=== PATIENT | female | born 1955 | race Caucasian/White ===

== ENCOUNTER 2016-08-24 10:10 | Observation (INO) ==
[2016-08-24] MEDS ORDERED: Ondansetron 4 MG/2 ML VIAL IVP ONE (10:45)
[2016-08-24] MEDS ORDERED: Clindamycin 900 MG/50 ML 900 MG/50 ML IV.SOLN IVPB ONE (10:45)
[2016-08-24] MEDS ORDERED: Ketorolac 30 MG/ML VIAL IVP ONE (10:45)
--- NOTE | 2016-08-24 10:46 | Emergency Department Note ---
Disposition Clinical Impression: Cellulitis Qualifiers: Site of cellulitis: extremity Site of cellulitis of extremity: axilla Laterality: right Qualified Code(s): L03.111 - Cellulitis of right axilla Disposition: Admitted As Inpatient Condition: Fair Forms: ED Satisfaction Letter Skin/Abscess/FB HPI Chief complaint: ED Skin/Abscess/Foreign Body Stated complaint: Abscess under R arm Time Seen by Provider: 08/24/16 10:20 Source: patient Mode of arrival: private vehicle Limitations: no limitations Nursing Notes Reviewed: Yes Vital Signs Reviewed: Yes Pt Subjective Complaint: abscess/boil Onset (ago): day(s) (4) Tetanus Up to Date: yes Location: RUE Severity: severe Quality: burning, sharp Consistency: constant Improves with: none Worsens with: movement Context: other Associated symptoms: Reports: fever, chills, nausea. Denies: rigors, itching, vomiting, malaise, arthralgias, myalgias, cough, shortness of breath Treatments prior to arrival: none Home Medications Medication Instructions Recorded Confirmed Black Cohosh Root [Black Cohosh] 200 mg PO HS 01/10/16 02/03/16 Budesonide/Formoterol Fumarate 2 puff IH BID PRN 01/10/16 02/03/16 [Symbicort 160-4.5 Mcg Inhaler] Gabapentin [Neurontin] 100 mg PO HS 01/10/16 02/03/16 Glucosamine Sulfate Dipot Chlr 1,000 mg PO DAILY 01/10/16 02/03/16 [Glucosamine] Hydroxychloroquine [Plaquenuil] 200 mg PO DAILY 01/10/16 02/03/16 Lactobacillus Combination No.8 1 cap PO DAILY 01/10/16 02/03/16 [Adult Probiotic] Levothyroxine [Synthroid] 88 mcg PO 0601/10/16 02/03/16 Multivitamin [One Daily Essential] 1 each PO DAILY 01/10/16 02/03/16 Paroxetine HCl [Paroxetine] 40 mg PO DAILY 01/10/16 02/03/16 TraZODone 50 mg PO HS 01/10/16 02/03/16 cloNIDine HCl [CloNIDine HCl] 0.1 mg PO HS 01/10/16 02/03/16 Albuterol Neb [Proventil Neb] 2.5 mg IH TID PRN 02/03/16 02/03/16 Albuterol Sulfate [Ventolin Hfa] 2 puff IH Q4H PRN 02/03/16 02/03/16 Lisinopril [Zestril] 10 mg PO DAILY 02/03/16 02/03/16 Allergies Allergy/AdvReac Type Severity Reaction Status Date / Time Amoxicillin [From Augmentin] AdvReac Gastrointestinal Verified 01/10/16 06:57 Upset clavulanic acid AdvReac Gastrointestinal Verified 01/10/16 06:57 [From Augmentin] Upset Erythromycin Base AdvReac Vomiting Unverified 01/10/16 06:57 sulfamethoxazole AdvReac Diarrhea Verified 01/10/16 06:57 [From Bactrim] trimethoprim [From Bactrim] AdvReac Diarrhea Verified 01/10/16 06:57 All systems ED: reviewed and negative except as stated. Constitutional: Reports: fever, chills. Denies: weakness Cardiovascular: Denies: chest pain, palpitations, syncope Respiratory: Denies: dyspnea Gastrointestinal: Reports: nausea. Denies: abdominal pain, vomiting, diarrhea Musculoskeletal: Denies: back pain, neck pain, joint swelling, arthralgia Neurological: Denies: headache Hematological/Lymphatic: Denies: easy bleeding, easy bruising, lymphadenopathy Past Medical History - Past Medical History Attestation: Yes The following information was validated with the patient. Source: patient Medical history: Reports: asthma, RA, thyroid disease Surgical history: Reports: other Psychiatric history: Reports: anxiety - Social History Smoking Status: Never smoker Smokeless Tobacco Status: No Alcohol use: Reports: none Drug use: Reports: none Physical Exam - General Limitations: no limitations General appearance: alert, in no apparent distress - Head Head exam: atraumatic, normocephalic, normal inspection - Eye Eye exam: Present: normal appearance, PERRL. Absent: scleral icterus, conjunctival injection, periorbital swelling - ENT ENT exam: mucous membranes moist - Neck Neck exam: Present: normal inspection, full ROM, trachea midline. Absent: lymphadenopathy - Respiratory Respiratory exam: Present: normal lung sounds bilaterally. Absent: respiratory distress - Cardiovascular Cardiovascular exam: Present: normal rhythm, tachycardia, normal heart sounds - Extremities Exam Extremities exam: Present: full ROM, normal capillary refill - Back Exam Back exam: Present: normal inspection - Neurological Exam Neurological exam: Present: alert, oriented X3, CN II-XII intact, normal gait - Psychiatric Psychiatric exam: Present: normal affect, normal mood - Skin Skin exam: Present: warm, dry, intact, normal color - Expanded Skin Exam Type of lesion: Present: other (cellulitis) Distribution: RUE (inferior medial aspect of axilla / tail of breast) Description: Present: size (7c m x 5cm oval shaped), tenderness, erythematous, swelling, indurated. Absent: blisters, petechial, purpuric, fluctuant Course Vital Signs Temperature 98.1 F 08/24/16 10:11 Pulse Rate 109 08/24/16 10:11 Respiratory Rate 18 08/24/16 10:11 Blood Pressure 121/72 08/24/16 10:11 O2 Sat by Pulse Oximetry 98 08/24/16 10:11 Temperature 98.1 F 08/24/16 10:11 Pulse Rate 109 08/24/16 10:11 Respiratory Rate 18 08/24/16 10:11 Blood Pressure 121/72 08/24/16 10:11 O2 Sat by Pulse Oximetry 98 08/24/16 10:11 Oxygen Delivery Oxygen Delivery Room Air Skin/Abscess/Foreign Body - Medical Records Medical records reviewed: Yes I reviewed the patient's medical records. - Lab Data Lab results reviewed: Yes I reviewed the patient's lab results. Result diagrams: 08/24/16 10:56 08/24/16 10:56 Lab Results 08/24/16 08/24/16 Range/Units 10:56 10:56 WBC 12.2 H (4.3-11.1) K/mcL RBC 3.26 L (3.82-4.97) M/mcL Hgb 10.5 L (11.5-15.4) g/dL Hct 31.6 L (35.3-44.9) % MCV 96.9 (83.0-100.0) fL MCH 32.2 (28.0-33.3) pg MCHC 33.2 (31.6-35.5) g/dL RDW 12.0 (11.5-14.5) % Plt Count 208 (140-400) K/mcL MPV 9.0 L (9.4-12.4) fL Immature Gran % 1.1 (0-4) % Seg Neutrophils % 81.2 % Lymphocytes % 7.9 % Monocytes % 8.0 % Eosinophils % 1.6 % Basophils % 0.2 % Neutrophils # 9.9 H (1.6-8.9) K/mcL Lymphocytes # 1.0 (0.6-4.6) K/mcL Monocytes # 1.0 (0.0-1.3) K/mcL Eosinophils # 0.2 (0.0-0.6) K/mcL Basophils # 0.0 (0.0-0.2) K/mcL Sodium 138 (136-145) mEq/L Potassium 3.7 (3.5-4.5) mEq/L Chloride 105 (98-109) mEq/L Carbon Dioxide 23 (19-29) mEq/L BUN 17 (7-20) mg/dL Creatinine 1.14 H (0.57-1.11) mg/dL Est GFR ( Amer) 59 L (> 60) Est GFR (Non-Af Amer) 48 L (> 60) BUN/Creatinine Ratio 15 (6-26) Glucose 181 H (70-99) mg/dL Calculated Osmolality 292 (280-300) Calcium 9.3 (8.6-10.8) mg/dL
[2016-08-24 11:02] LABS: Basophils % 0.2 %; Eosinophils # 0.2 K/mcL (0.0-0.6); Eosinophils % 1.6 %; Hematocrit 31.6 % (35.3-44.9); Hemoglobin 10.5 g/dL (11.5-15.4); Immature Granulocytes % 1.1 % (0-4); Lymphocytes % 7.9 %; Mean Corpuscular HGB Conc 33.2 g/dL (31.6-35.5); Mean Corpuscular Hemoglobin 32.2 pg (28.0-33.3); Mean Corpuscular Volume 96.9 fL (83.0-100.0); Neutrophils # 9.9 K/mcL (1.6-8.9); Platelet Count 208 K/mcL (140-400); Red Blood Count 3.26 M/mcL (3.82-4.97); Segmented Neutrophils % 81.2 %
[2016-08-24 11:13] LABS: Calcium 9.3 mg/dL (8.6-10.8); Potassium 3.7 mEq/L (3.5-4.5)
--- NOTE | 2016-08-24 11:49 | Emergency Department Note ---
START Narrative - START START: I examined this patient and my medical decision-making was reviewed with the WORKERS COMPENSATION SPECIALIST/PA/Advanced Practice Nurse/Resident Physician. I agree with the documented findings, disposition and treatment plan as described except to the extent set forth below. ED attending note: Patient seen with physician assistant unit forester Greer Mccollum We independently evaluated the patient. We independently had [id number] contact with the patient. Please see a copy of his note for details of the history and physical, evaluation, management and disposition of this emergency Department patient. Briefly: 61-year-old female presents with erythematous painful and indurated area on the anterior right axillary fold that is been growing and spreading with increasing pain and low-grade fever since . There has been no recent trauma to the area or shaving. She said she has had occasional "pimples " but nothing like this. Her tetanus is up-to-date. She is on week for methotrexate to treat rheumatoid arthritis. She has elevated white count and glucose is elevated at 181. Considering the spread of the induration and erythema consistent with a cellulitis involving the truncal area of the anterior axillary fold on the right going on to the pectoral area of admission is warranted. IV antibiotics are being started. Orders placed for admission and hospitalist his page.
[2016-08-24] MEDS ORDERED: Naloxone 0.4 MG/ML INJ IVP PRN (13:41)
[2016-08-24] MEDS ORDERED: *HR* OxyCODONE/APAP 5/325 TABLET PO PRN (13:42)
--- NOTE | 2016-08-24 13:47 | Internal Med History&Physical ---
Date of Encounter: 08/24/16 Time of Encounter: 13:00 Assessment and Plan (1) Cellulitis Current visit: Yes Status: Acute Acute cellulitis involving the right anterior chest wall and axilla. We will treat with IV antibiotics. Pain control. Moderate risk for complications Qualifiers: Site of cellulitis: extremity Site of cellulitis of extremity: axilla Laterality: right Qualified Code(s): L03.111 - Cellulitis of right axilla (2) Essential hypertension Current visit: Yes Status: Chronic Monitor blood pressure. Continue home medications. (3) Elevated blood sugar level Current visit: Yes Status: Acute Patient has elevated blood sugar at 180 on arrival here. Will check A1c level. Internal Medicine - H&P: HPI Chief complaint: Right-sided chest wall /axillary redness and swelling Admitted From: Emergency Dept Plans for Post Hospital Care: Home History of present illness: Ms. Samuel is a 61 year old female patient with history of essential hypertension who presented to the ER with complaints of right chest wall and axillary region redness and swelling. This began 4 days back as a single pimple and began to rapidly spread with increased pain and tenderness along with swelling in this region. She began to have fevers and chills at home. Pain has been 7 out of 10 in severity. She had a similar pimple/ boil about 2 years back that spontaneously resolved without any increase in size. She has recently started taking methotrexate for rheumatoid arthritis. No nausea or vomiting. No recent antibiotic use. Past Med Surg Social Fam HX - Past Medical History Attestation: Yes The following information was validated with the patient. Source: patient Medical history: asthma, RA, thyroid disease Psychiatric history: anxiety - Past Surgical History Surgical History: other - Social History Smoking Status: Never smoker Smokeless Tobacco Status: No Alcohol use: none Drug use: none - Additional Family History Additional family history: Reviewed and found to be contributing at this time Internal Medicine - H&P: Meds Glucosamine Sulfate Dipot Chlr [Glucosamine] 1,000 mg PO DAILY 01/10/16 [History ] Hydroxychloroquine [Plaquenuil] 200 mg PO BID 01/10/16 [History] Multivitamin [One Daily Essential] 1 each PO DAILY 01/10/16 [History] Paroxetine HCl [Paroxetine] 40 mg PO DAILY 01/10/16 [History] TraZODone 50 mg PO HS 01/10/16 [History] cloNIDine HCl [CloNIDine HCl] 0.1 mg PO HS 01/10/16 [History] Acetaminophen [Tylenol] 1,500 mg PO ONCE 08/24/16 [History] Folic Acid [Folic Acid] 1 mg PO DAILY 08/24/16 [History] Levothyroxine [Synthroid] 112 mcg PO 0630 08/24/16 [History] Methotrexate [Otrexup] 7.5 mg PO FR 08/24/16 [History] Allergies Amoxicillin [From Augmentin] Adverse Reaction (Verified 08/24/16 12:19) Gastrointestinal Upset clavulanic acid [From Augmentin] Adverse Reaction (Verified 08/24/16 12:19) Gastrointestinal Upset Erythromycin Base Adverse Reaction (Unverified 08/24/16 12:19) Vomiting sulfamethoxazole [From Bactrim] Adverse Reaction (Verified 08/24/16 12:19) Diarrhea trimethoprim [From Bactrim] Adverse Reaction (Verified 08/24/16 12:19) Diarrhea All Systems PM: A 10-system review of systems was performed and is negative for pertinent findings except as documented above in the HPI. - Constitutional Constitutional: chills, fever(s), no night sweats - EENT Eyes: no change in vision, no discharge, no pain, no photophobia Ears: no ear discharge, no ear pain, no tinnitus Nose, mouth and throat: no dysphagia, no nasal discharge, no neck pain, no sore throat - Cardiovascular Cardiovascular ROS IM: no chest pain, no diaphoresis, no dyspnea, no lightheadedness, no palpitations, no syncope - Respiratory Respiratory: no cough, no dyspnea, no wheezing, no excessive phlegm production - Gastrointestinal Gastrointestinal: no abdominal pain, no diarrhea, no hematemesis, no hematochezia, no melena, no nausea, no vomiting - Genitourinary Genitourinary: no change in urinary stream, no dysuria, no flank pain, no hematuria - Musculoskeletal Musculoskeletal ROS IM: no numbness, no tingling - Integumentary Integumentary IM: erythema, rash, no unusual bruising - Neurological Neurological ROS: no confusion, no convulsions, no focal weakness, no numbness, no tingling, no tremor(s) - Constitutional Vitals: Temp Pulse Resp BP Pulse Ox 98.1 F 103 14 142/75 95 05/15/17 10:11 08/24/16 11:46 08/24/16 13:13 08/24/16 13:13 08/24/16 11:46 General appearance: Present: cooperative, mild distress, A&O X 3, answers questions appropriately - Respiratory Respiratory exam: Present: CTAB. Absent: accessory muscle use, rales, rhonchi, wheezes - Cardiovascular Cardiovascular exam: Present: RRR, +S1, +S2. Absent: diastolic murmur, gallop, rubs, systolic murmur - GI/Abdominal GI/Abdominal exam: Present: normal bowel sounds, soft, no peritoneal signs. Absent: distended, tenderness - Extremities Exam Extremities exam: Present: warm, radial pulses palpable and symetrical. Absent : calf tenderness, cyanotic, pedal edema - Skin Skin exam: Present: dry, erythema (Cellulitis with induration involving the right chest wall and anterior axillary region measuring about 15x 20 cm in size with tenderness and warmth to palpation. No tender lymph nodes palpated. No fluctuance), intact Internal Med - H&P Results - Labs CBC & Chem 7: 08/24/16 10:56 08/24/16 10:56 - Attending Attestation This document has been at least partially created by [email or web address] recognition technology by Dr. Gan. Errors in grammar, wording or other phrases may exist. If errors are found after the documentation is signed, they will be addressed individually in the addendum section of this document when appropriate.
[2016-08-24] MEDS ORDERED: Ondansetron 4 MG/2 ML VIAL IVP PRN (16:18)
[2016-08-24] MEDS: Clindamycin 600 MG/50 ML 600 MG/50 ML IV.SOLN IVPB SCH ×2 (17:12→23:59)
[2016-08-24] MEDS: *HR* Heparin 5,000 UNIT/ML VIAL SQ SCH (17:13)
[2016-08-24] MEDS: cloNIDine HCl 0.1 MG TABLET PO SCH (21:07)
[2016-08-24] MEDS: Lactobacillus 1 EACH CAP.SPRINK PO SCH (21:07)
[2016-08-24] MEDS: traZODone 50 MG TABLET PO SCH (21:07)
[2016-08-25 05:40] LABS: Basophils % 0.2 %; Eosinophils # 0.1 K/mcL (0.0-0.6); Eosinophils % 0.6 %; Hematocrit 30.3 % (35.3-44.9); Immature Granulocytes % 2.1 % (0-4); Lymphocytes # 1.3 K/mcL (0.6-4.6); Lymphocytes % 10.6 %; Mean Corpuscular Hemoglobin 31.9 pg (28.0-33.3); Mean Corpuscular Volume 96.8 fL (83.0-100.0); Mean Platelet Volume 9.4 fL (9.4-12.4); Monocytes % 8.3 %; Neutrophils # 9.5 K/mcL (1.6-8.9); Platelet Count 218 K/mcL (140-400); Red Blood Count 3.13 M/mcL (3.82-4.97); Red Cell Distribution Width 12.1 % (11.5-14.5); Segmented Neutrophils % 78.2 %
[2016-08-25 06:00] LABS: Hemoglobin A1C 6.2 %
[2016-08-25] MEDS: *HR* Heparin 5,000 UNIT/ML VIAL SQ SCH ×2 (06:05→16:57)
[2016-08-25] MEDS: (Glucosamine Sulfate Dipot Chlr [Glucosamine] 1,000 M) PO SCH (08:59)
[2016-08-25] MEDS: Clindamycin 600 MG/50 ML 600 MG/50 ML IV.SOLN IVPB SCH ×3 (08:59→23:53)
[2016-08-25] MEDS: Lactobacillus 1 EACH CAP.SPRINK PO SCH ×2 (08:59→20:07)
[2016-08-25] MEDS: Folic Acid 1 MG TABLET PO SCH (08:59)
[2016-08-25] MEDS ORDERED: *HR* Morphine 2 MG/ML SYRINGE IVP PRN (09:29)
--- NOTE | 2016-08-25 09:38 | Internal Med Progress Note ---
Date of Encounter: 08/25/16 Time of Encounter: 08:45 - Assessment and plan (1) Cellulitis Current Visit: Yes Status: Acute Assessment and plan: Cellulitis/abscess noted to right axillary area. Erythema has regressed and improved when compared to pen markings from yesterday. Induration without fluctuance. No indication for I&D at this time. Afebrile. Mild leukocytosis. Mild tachycardia. Will initiate IV fluids. Mild anemia, will trend. Patient requesting an increase in pain medication, morphine added for severe pain. Continue clindamycin. Overall, she is improving, will trend. Hyperglycemia noted, will initiate insulin if indicated. Qualifiers: Site of cellulitis: extremity Site of cellulitis of extremity: axilla Laterality: right Qualified Code(s): L03.111 - Cellulitis of right axilla (2) SIRS (systemic inflammatory response syndrome) Current Visit: Yes Status: Acute Assessment and plan: Tachycardia noted with very mild leukocytosis of 12.1. Blood pressure stable. Patient alert and oriented 3 and perfusing well. Capillary refill brisk to all extremities. No fevers. We will initiate IV fluids. We will monitor. We will check a lactic acid levels. (3) CKD (chronic kidney disease) stage 3, GFR 30-59 ml/min Current Visit: Yes Status: Chronic Assessment and plan: Stable and consistent with her baseline, will trend. (4) Essential hypertension Current Visit: Yes Status: Chronic Assessment and plan: Controlled. At home, patient is only on clonidine 0.1 mg at bedtime for her blood pressure. This has been continued, will trend. (5) Elevated blood sugar level Current Visit: Yes Status: Acute Assessment and plan: Likely stress/infection related. A1c 6.2%, will trend while admitted. No diagnosis of diabetes at this time. ACHS checks- will add insulin if indicated - Subjective Interval history: Patient seen and examined. On examination, patient sitting upright in bed watching television. She states that her pain is better controlled, but is requesting an increase in her pain medication. She states that she is eating well. - Constitutional Vitals: Temp Pulse Resp BP Pulse Ox 98.7 F 107 17 115/63 95 08/25/16 08:54 08/25/16 08:54 08/25/16 08:54 08/25/16 08:54 08/25/16 08:54 General appearance: Present: cooperative, A&O X 3, pleasant, no acute distress, answers questions appropriately - Head Head exam: Present: atraumatic, normocephalic - Eye Eye exam: Present: PERRL, conjuntiva pink, sclera anicteric Pupils: Present: PERRL - Neck Neck exam general surgery: Present: supple, trachea midline. Absent: lymphadenopathy - Respiratory Respiratory exam: Present: CTAB. Absent: accessory muscle use, rales, respiratory distress, rhonchi, wheezes - Cardiovascular Cardiovascular exam: Present: RRR, +S1, +S2. Absent: diastolic murmur, gallop, rubs, systolic murmur - GI/Abdominal GI/Abdominal exam: Present: normal bowel sounds, soft, no peritoneal signs. Absent: distended, tenderness - Extremities Exam Extremities exam: Present: warm, radial pulses palpable and symetrical. Absent : calf tenderness, cyanotic, pedal edema - Neurological Exam Neurological exam: Present: alert, CN II-XII intact, oriented X3, no focal deficits, strengths equal and symetr throughout. Absent: pronater drift, facial droop, speech deficit - Skin Skin exam: Present: dry, intact, normal color, warm - Expanded Skin Exam Type of lesion: Present: abscess Distribution of rash: Present: chest Description of rash: Present: erythematous, indurated, swelling, tenderness. Absent: fluctuant Internal Medicine: Result - Labs CBC & Chem 7: 08/25/16 05:16 17 10:56 Labs: Short CBC 08/25/16 Range/Units 05:16 WBC 12.1 H (4.3-11.1) K/mcL Hgb 10.0 L (11.5-15.4) g/dL Hct 30.3 L (35.3-44.9) % Plt Count 218 (140-400) K/mcL Neutrophils # 9.5 H (1.6-8.9) K/mcL Consult Discharge Plan - Plan Referrals: Aviva Tracy DO [Primary Care Provider] -
[2016-08-25] MEDS: 0.9 % Sodium Chloride 1,000 ML IVC SCH ×2 (10:59→21:15)
[2016-08-25] MEDS: traZODone 50 MG TABLET PO SCH (20:07)
[2016-08-25] MEDS: cloNIDine HCl 0.1 MG TABLET PO SCH (20:07)
[2016-08-26 03:59] LABS: Basophils % 0.2 %; Eosinophils # 0.2 K/mcL (0.0-0.6); Eosinophils % 1.8 %; Hematocrit 25.8 % (35.3-44.9); Hemoglobin 8.5 g/dL (11.5-15.4); Immature Granulocytes % 1.2 % (0-4); Lymphocytes # 2.6 K/mcL (0.6-4.6); Lymphocytes % 21.2 %; Mean Corpuscular HGB Conc 32.9 g/dL (31.6-35.5); Mean Corpuscular Hemoglobin 32.4 pg (28.0-33.3); Mean Corpuscular Volume 98.5 fL (83.0-100.0); Mean Platelet Volume 9.8 fL (9.4-12.4); Monocytes # 1.1 K/mcL (0.0-1.3); Neutrophils # 8.2 K/mcL (1.6-8.9); Platelet Count 200 K/mcL (140-400); Red Blood Count 2.62 M/mcL (3.82-4.97); Red Cell Distribution Width 12.3 % (11.5-14.5); Segmented Neutrophils % 66.6 %
[2016-08-26 04:18] LABS: BUN/Creatinine Ratio 17 (6-26); Blood Urea Nitrogen 18 mg/dL (7-20); Calcium 8.1 mg/dL (8.6-10.8); Carbon Dioxide 25 mEq/L (19-29); Chloride 106 mEq/L (98-109); Glucose 163 mg/dL (70-99); Osmolality,Calculated 291 (280-300); Potassium 3.7 mEq/L (3.5-4.5); Sodium 138 mEq/L (136-145); eGFR For African Americans > 60 (> 60); eGFR For Non-African Americans 54 (> 60)
[2016-08-26] MEDS: *HR* Heparin 5,000 UNIT/ML VIAL SQ SCH (06:14)
[2016-08-26 06:28] VITALS: BP 105/68
[2016-08-26] MEDS: Lactobacillus 1 EACH CAP.SPRINK PO SCH (09:31)
[2016-08-26] MEDS: Clindamycin 600 MG/50 ML 600 MG/50 ML IV.SOLN IVPB SCH (09:32)
[2016-08-26] MEDS: Folic Acid 1 MG TABLET PO SCH (09:32)
[2016-08-26] MEDS: (Glucosamine Sulfate Dipot Chlr [Glucosamine] 1,000 M) PO SCH (09:32)
--- NOTE | 2016-08-26 10:40 | Discharge Summary ---
Date of Encounter: 08/26/16 Time of Encounter: 09:30 - Discharge Diagnosis (1) Cellulitis Priority: Primary Status: Acute Comments: Much improved on day of discharge. We will continue clindamycin upon disposition. (2) SIRS (systemic inflammatory response syndrome) Priority: Primary Status: Resolved (3) CKD (chronic kidney disease) stage 3, GFR 30-59 ml/min Priority: Secondary Status: Chronic Comments: Remained stable and slightly improved from her baseline throughout this admission. Creatinine normal on day of discharge. Follow up outpatient (4) Essential hypertension Priority: Secondary Status: Chronic Comments: Controlled. At home, patient is only on clonidine 0.1 mg at bedtime for her blood pressure. This has been continued, follow-up outpatient. (5) Elevated blood sugar level Priority: Primary Status: Acute Comments: Likely secondary to infection. A1c 6.2%, prediabetes diagnosed, follow-up outpatient - Discharge Medications Prescriptions: Clindamycin HCl 300 mg PO QID #44 capsule Home Medications: Glucosamine Sulfate Dipot Chlr [Glucosamine] 1,000 mg PO DAILY 01/10/16 [History ] Hydroxychloroquine [Plaquenuil] 200 mg PO BID 01/10/16 [History] Multivitamin [One Daily Essential] 1 each PO DAILY 01/10/16 [History] Paroxetine HCl [Paroxetine] 40 mg PO DAILY 01/10/16 [History] TraZODone 50 mg PO HS 01/10/16 [History] cloNIDine HCl [CloNIDine HCl] 0.1 mg PO HS 01/10/16 [History] Acetaminophen [Tylenol] 1,500 mg PO ONCE 08/24/16 [History] Folic Acid 1 mg PO DAILY 08/24/16 [History] Levothyroxine [Synthroid] 112 mcg PO 0630 08/24/16 [History] Methotrexate [Otrexup] 7.5 mg PO FR 08/24/16 [History] Clindamycin HCl 300 mg PO QID #44 capsule 08/26/16 [Rx] Allergies/Adverse Reactions: Allergies Amoxicillin [From Augmentin] Adverse Reaction (Verified 08/24/16 12:19) Gastrointestinal Upset clavulanic acid [From Augmentin] Adverse Reaction (Verified 08/24/16 12:19) Gastrointestinal Upset Erythromycin Base Adverse Reaction (Verified 08/25/16 08:58) Vomiting sulfamethoxazole [From Bactrim] Adverse Reaction (Verified 08/24/16 12:19) Diarrhea trimethoprim [From Bactrim] Adverse Reaction (Verified 08/24/16 12:19) Diarrhea Date of admission: 08/24/16 12:16 Primary care physician: Irvin Curry Discharging clinician: Koki Marks Anticipated date of discharge: 08/26/16 - Patient Status Disposition: Home, Self-Care Condition: Good Functional capacity at discharge: independent ambulation Overall status at discharge: patient is back to baseline - Discharge Instructions Follow Up With: Aviva Tracy DO [Primary Care Provider] - 09/01/16 1:30 pm Additional Instructions: Follow-up with primary care provider as scheduled - Diet and Activity Activity: increase activity as tolerated Diet: diabetic diet, low salt diet Hospital course: Ms. Samuel is a 61 year old female with past medical history of hypertension and rheumatoid arthritis. Patient presented to the emergency department chief complaint right-sided chest wall/right axillary region redness and swelling. Symptoms started 4 days prior to presentation and started out as a single pimple but then rapidly increased pain and tenderness in size. Patient also endorsed fevers and chills at home. Patient stating she had a similar presentation 2 years prior to presentation that spontaneously resolved without any intervention. She recently started taking methotrexate for her RA. Workup in the emergency department unremarkable. Patient was admitted to the hospitalist service for further evaluation and management. Patient was treated with clindamycin while admitted. She was admitted and observed over the course of 2 nights and her wound improved greatly over those 3 days. She initially met SIRS criteria but resolved with IV fluids. No lactic acidosis. She remained hemodynamically stable. She did have mild anemia is likely hemodilution nor has she had no signs of active bleeding. Recommend follow-up outpatient for recheck of her CBC. Her glucose levels were also noted to be elevated however A1c 6.2%, diagnosed with prediabetes at this time. Recommended lifestyle changes and follow-up outpatient-no diabetes medications initiated at this time. Throughout this admission, her wound was not amenable to an I&D and an I&D was not indicated clinically. She was discharged home in stable condition with close outpatient follow-up recommended. - Time Spent with Patient Total time spent providing and/or coordinating discharge services: - Constitutional Vitals: Temp Pulse Resp BP Pulse Ox 98.1 F 97 18 105/68 97 05/17/17 06:27 08/26/16 06:27 08/26/16 06:27 08/26/16 06:27 08/26/16 06:27 General appearance: Present: cooperative, A&O X 3, pleasant, no acute distress, answers questions appropriately - Head Head exam: Present: atraumatic, normocephalic - Eye Eye exam: Present: PERRL, conjuntiva pink, sclera anicteric Pupils: Present: PERRL - Neck Neck exam general surgery: Present: supple, trachea midline. Absent: lymphadenopathy - Respiratory Respiratory exam: Present: CTAB. Absent: accessory muscle use, rales, respiratory distress, rhonchi, wheezes - Cardiovascular Cardiovascular exam: Present: RRR, +S1, +S2. Absent: diastolic murmur, gallop, rubs, systolic murmur - GI/Abdominal GI/Abdominal exam: Present: normal bowel sounds, soft, no peritoneal signs. Absent: distended, tenderness - Extremities Exam Extremities exam: Present: warm, radial pulses palpable and symetrical. Absent : calf tenderness, cyanotic, pedal edema - Neurological Exam Neurological exam: Present: alert, CN II-XII intact, normal gait, oriented X3, no focal deficits, strengths equal and symetr throughout. Absent: pronater drift, facial droop, speech deficit - Skin Skin exam: Present: dry, intact, normal color, warm - Expanded Skin Exam Type of lesion: Present: abscess Distribution of rash: Present: chest (Right axillary) Description of rash: Present: erythematous, indurated, swelling (Improved), tenderness. Absent: discharge, fluctuant
== END 2016-08-26 12:15 | disposition home or self-care (01) ==
LOC: 3BNU 10:10 → EMEROO 10:10 → SUATTDRO 12:16 → 3BNU 13:13
PROVIDERS: ADMIT Internal Medicine; ATTEND Nurse Practitioner Family

== ENCOUNTER 2019-05-17 19:15 | Inpatient (IN) ==
[2019-05-17] MEDS ORDERED: Ondansetron 4 MG/2 ML VIAL IVP STA (19:40)
[2019-05-17] MEDS ORDERED: 0.9 % Sodium Chloride 1,000 ML IVC ONE (19:40)
[2019-05-17] MEDS ORDERED: *HR* HYDROmorphone (PF) 1 MG/ML SYRINGE IVP ONE ×2 (19:40→23:13)
[2019-05-17] MEDS ORDERED: Ketamine *HR* 15 MG in 0.9 % Sodium Chloride 100 ML IVPB ONE (20:46)
[2019-05-17] MEDS ORDERED: *HR* HYDROmorphone (PF) 1 MG/ML SYRINGE IVP STA (21:53)
[2019-05-17 23:27] LABS: Basophils % 0.3 %; Eosinophils # 0.1 K/mcL (0.0-0.6); Eosinophils % 0.6 %; Hemoglobin 11.9 g/dL (11.5-15.4); Immature Granulocytes % 0.8 % (0-4); Lymphocytes # 1.9 K/mcL (0.6-4.6); Lymphocytes % 16.3 %; Mean Corpuscular Hemoglobin 33.9 pg (28.0-33.3); Mean Corpuscular Volume 99.7 fL (83.0-100.0); Mean Platelet Volume 9.7 fL (9.4-12.4); Monocytes # 0.8 K/mcL (0.0-1.3); Monocytes % 6.6 %; Neutrophils # 8.8 K/mcL (1.6-8.9); Platelet Count 242 K/mcL (140-400); Red Blood Count 3.51 M/mcL (3.82-4.97); Red Cell Distribution Width 12.8 % (11.5-14.5); Segmented Neutrophils % 75.4 %; White Blood Count 11.7 K/mcL (4.3-11.1)
[2019-05-17 23:45] LABS: BUN/Creatinine Ratio 14 (6-26); Blood Urea Nitrogen 14 mg/dL (8-23); Calcium 8.9 mg/dL (8.6-10.3); Carbon Dioxide 25 mEq/L (23-29); Chloride 106 mEq/L (98-107); Glucose 131 mg/dL (70-105); Osmolality,Calculated 288 (280-300); Potassium 3.6 mEq/L (3.5-5.1); Sodium 138 mEq/L (136-145); eGFR For African Americans > 60 (> 60); eGFR For Non-African Americans 57 (> 60)
[2019-05-17] MEDS: 0.9 % Sodium Chloride 1,000 ML IVC SCH (23:46)
[2019-05-18] MEDS ORDERED: Naloxone 0.4 MG/ML INJ IVP PRN (00:13)
[2019-05-18] MEDS ORDERED: D5% in Water 1,000 ML IVC PRN (00:13)
[2019-05-18] MEDS ORDERED: Dextrose Gel 15 GM/37.5 ML TUBE PO PRN ×2 (00:13)
[2019-05-18] MEDS ORDERED: *HR* Dextrose 50 % in Water (Syg) 50 ML SYRINGE IVP PRN (00:13)
[2019-05-18] MEDS ORDERED: traZODone 50 MG TABLET PO SCH ×3 (00:30→21:00)
[2019-05-18 01:05] LABS: Basophils % 0.2 %; Eosinophils % 0.2 %; Hematocrit 33.1 % (35.3-44.9); Hemoglobin 10.9 g/dL (11.5-15.4); Immature Granulocytes % 0.3 % (0-4); Lymphocytes # 1.7 K/mcL (0.6-4.6); Lymphocytes % 15.7 %; Mean Corpuscular HGB Conc 32.9 g/dL (31.6-35.5); Mean Corpuscular Hemoglobin 33.7 pg (28.0-33.3); Mean Corpuscular Volume 102.5 fL (83.0-100.0); Mean Platelet Volume 9.1 fL (9.4-12.4); Monocytes % 9.5 %; Neutrophils # 7.9 K/mcL (1.6-8.9); Platelet Count 204 K/mcL (140-400); Red Blood Count 3.23 M/mcL (3.82-4.97); Red Cell Distribution Width 12.6 % (11.5-14.5); Segmented Neutrophils % 74.1 %; White Blood Count 10.6 K/mcL (4.3-11.1)
[2019-05-18 01:17] LABS: Prothrombin Time 11.3 Seconds (9.4-12.1)
[2019-05-18 01:25] LABS: Alanine Aminotransferase 17 Units/L (7-52); Albumin 3.4 g/dL (3.5-5.7); Albumin/Globulin Ratio 1.4 (1.1-2.2); Alkaline Phosphatase 63 Units/L (34-104); Aspartate Amino Transferase 20 Units/L (13-39); BUN/Creatinine Ratio 13 (6-26); Bilirubin,Total 0.4 mg/dL (0.3-1.0); Blood Urea Nitrogen 12 mg/dL (8-23); Calcium 8.5 mg/dL (8.6-10.3); Carbon Dioxide 25 mEq/L (23-29); Chloride 108 mEq/L (98-107); Cholesterol 252 mg/dL (< 200); Globulin 2.5 g/dL (2.4-3.5); Glucose 156 mg/dL (70-105); HDL Cholesterol 50 mg/dL (40-59); LDL Cholesterol,Calculated 174 mg/dL (0-99); Magnesium 1.4 mg/dL (1.6-2.6); Osmolality,Calculated 291 (280-300); Phosphorous 2.9 mg/dL (2.7-4.5); Sodium 139 mEq/L (136-145); Total Protein 5.9 g/dL (6.4-8.9); Triglycerides 139 mg/dL (< 150); eGFR For African Americans > 60 (> 60); eGFR For Non-African Americans > 60 (> 60)
[2019-05-18 01:37] LABS: Thyroid Stimulating Hormone 0.184 mcIU/mL (0.340-5.600)
[2019-05-18 01:44] LABS: Estimated Average Glucose 163 mg/dl
[2019-05-18 03:50] LABS: Bilirubin,Urine Negative (Negative); Blood,Urine Negative (Negative); Clarity,Urine Clear (Clear); Color,Urine Yellow (Yellow); Glucose,Urine (UA) Normal (Normal); Ketones,Urine Negative (Negative); Leukocyte Esterase,Urine Negative (Negative); Nitrite,Urine Negative (Negative); Protein,Urine Negative (Neg-Trace); Specific Gravity,Urine 1.017 (1.010-1.025); Urobilinogen,Urine Normal (Normal)
[2019-05-18] MEDS: Insulin LISPRO 300 UNITS/3 ML VIAL SQ SCH ×3 (06:07→17:31)
[2019-05-18] MEDS ORDERED: PARoxetine 20 MG TABLET PO SCH (09:00)
[2019-05-18] MEDS: 0.9 % Sodium Chloride 1,000 ML IVC SCH ×2 (10:38→18:40)
[2019-05-18] MEDS ORDERED: *HR* Heparin 5,000 UNIT/ML VIAL SQ SCH (19:00)
[2019-05-18] MEDS ORDERED: *HR* Metoprolol 5 MG/5 ML VIAL IVP ONE (23:30)
[2019-05-19] MEDS: Insulin LISPRO 300 UNITS/3 ML VIAL SQ SCH ×5 (00:28→23:12)
[2019-05-19 06:45] LABS: Folate 20.4 ng/mL (3.0-16.0)
[2019-05-19 06:49] LABS: Vitamin B12 > 1500 pg/mL (250-1100)
[2019-05-19] MEDS ORDERED: Cholecalciferol (D-3) 1,000 UNIT (25MCG) TABLET PO SCH (09:00)
[2019-05-19] MEDS ORDERED: PARoxetine 20 MG TABLET PO SCH (09:00)
[2019-05-19] MEDS ORDERED: Cyanocobalamin (B-12) 1,000 MCG TABLET PO SCH (09:00)
[2019-05-19] MEDS ORDERED: Folic Acid 1 MG TABLET PO SCH (09:00)
[2019-05-19] MEDS ORDERED: Multivit/Ca/Min/Fe/FA 1 TAB TABLET PO SCH (09:00)
[2019-05-19] MEDS ORDERED: *HR* Metoprolol 5 MG/5 ML VIAL IVP ONE (10:16)
[2019-05-19] MEDS: 0.9 % Sodium Chloride 1,000 ML IVC SCH (10:50)
[2019-05-19] MEDS ORDERED: Isovue-370 500 ML BOTTLE IVP ONE (10:57)
[2019-05-19] MEDS ORDERED: *HR* Methotrexate 2.5 MG TABLET PO SCH (13:24)
[2019-05-19] MEDS ORDERED: Furosemide 20 MG/2 ML VIAL IVP ONE (13:33)
[2019-05-19] MEDS ORDERED: Ethanol\\Acetic Acid\\Na Ace\\Ben 1,000 ML IRRIG.SOLN IR ONE (14:54)
[2019-05-19] MEDS ORDERED: levoFLOXacin 750 MG/150 ML 750 MG/150 ML BAG IVPB SCH (15:15)
[2019-05-19] MEDS ORDERED: *HR* FentaNYL (PF) 100 MCG/2 ML VIAL ONE (15:25)
[2019-05-19] MEDS ORDERED: Lidocaine -MPF 2% 2 ML VIAL ONE (15:25)
[2019-05-19] MEDS ORDERED: *HR* Succinylcholine 200 MG/10 ML VIAL IVP ONE (15:25)
[2019-05-19] MEDS ORDERED: *HR* Propofol 200 MG/20 ML VIAL IVP ONE (15:25)
[2019-05-19] MEDS ORDERED: Clindamycin 900 MG/50 ML 900 MG/50 ML IV.SOLN IVPB ONE (15:38)
[2019-05-19] MEDS ORDERED: Acetaminophen IV 1,000 MG/100 ML INFUS..BTL ONE (15:39)
[2019-05-19] MEDS ORDERED: Lidocaine HCL 4 ML Topical Solution (Laryng-O-Jet Kit Sterile Pak) TP ONE (15:47)
[2019-05-19] MEDS ORDERED: *HR* PHENYLEPHRINE 1,000 MCG/10 ML SYRINGE IVP ONE (15:53)
[2019-05-19] MEDS ORDERED: Dexamethasone 4 MG/ML VIAL ONE (16:08)
[2019-05-19] MEDS ORDERED: Ondansetron 4 MG/2 ML VIAL ONE (16:08)
[2019-05-19] MEDS ORDERED: Ketorolac 30 MG/ML VIAL ONE (16:36)
[2019-05-19] MEDS ORDERED: Albuterol 2.5 MG/3 ML NEBULIZER ONE (17:25)
[2019-05-19] MEDS ORDERED: Ringers Solution, Lactated 1,000 ML IVC SCH (17:49)
[2019-05-19] MEDS ORDERED: *HR* Promethazine 25 MG/ML VIAL IVP PRN (17:49)
[2019-05-19] MEDS ORDERED: Naloxone 0.4 MG/ML INJ IVP PRN ×2 (17:49)
[2019-05-19] MEDS ORDERED: Dextrose Gel 15 GM/37.5 ML TUBE PO PRN ×2 (17:49)
[2019-05-19] MEDS ORDERED: D5% in Water 1,000 ML IVC PRN (17:49)
[2019-05-19] MEDS ORDERED: Ondansetron 4 MG/2 ML VIAL IVP PRN (17:49)
[2019-05-19] MEDS ORDERED: MOM Conc 10 ML UD.LIQ PO PRN (17:49)
[2019-05-19] MEDS ORDERED: Sennosides 8.6 MG TABLET PO PRN (17:49)
[2019-05-19] MEDS ORDERED: *HR* Dextrose 50 % in Water (Syg) 50 ML SYRINGE IVP PRN (17:49)
[2019-05-19] MEDS: Ascorbic Acid 500 MG TABLET PO SCH (18:24)
[2019-05-19] MEDS: traZODone 50 MG TABLET PO SCH (21:23)
[2019-05-19] MEDS: Clindamycin 900 MG/50 ML 900 MG/50 ML IV.SOLN IVPB SCH (23:05)
[2019-05-20] MEDS: Clindamycin 900 MG/50 ML 900 MG/50 ML IV.SOLN IVPB SCH (06:34)
[2019-05-20 07:18] LABS: Basophils % 0.1 %; Hematocrit 27.9 % (35.3-44.9); Hemoglobin 9.3 g/dL (11.5-15.4); Immature Granulocytes % 0.6 % (0-4); Lymphocytes # 0.4 K/mcL (0.6-4.6); Lymphocytes % 5.5 %; Mean Corpuscular HGB Conc 33.3 g/dL (31.6-35.5); Mean Corpuscular Volume 98.9 fL (83.0-100.0); Mean Platelet Volume 9.9 fL (9.4-12.4); Monocytes # 0.6 K/mcL (0.0-1.3); Monocytes % 7.8 %; Neutrophils # 6.9 K/mcL (1.6-8.9); Platelet Count 183 K/mcL (140-400); Red Blood Count 2.82 M/mcL (3.82-4.97); Red Cell Distribution Width 12.3 % (11.5-14.5)
[2019-05-20 07:38] LABS: BUN/Creatinine Ratio 14 (6-26); Blood Urea Nitrogen 13 mg/dL (8-23); Calcium 8.6 mg/dL (8.6-10.3); Carbon Dioxide 28 mEq/L (23-29); Chloride 103 mEq/L (98-107); Glucose 228 mg/dL (70-105); Osmolality,Calculated 293 (280-300); Potassium 4.4 mEq/L (3.5-5.1); Sodium 138 mEq/L (136-145); eGFR For African Americans > 60 (> 60); eGFR For Non-African Americans 59 (> 60)
[2019-05-20] MEDS: levoFLOXacin 750 MG/150 ML 750 MG/150 ML BAG IVPB SCH (08:27)
[2019-05-20] MEDS: Multivit/Ca/Min/Fe/FA 1 TAB TABLET PO SCH (08:28)
[2019-05-20] MEDS: Aspirin Enteric Coated 81 MG Tablet PO SCH (08:28)
[2019-05-20] MEDS: Cyanocobalamin (B-12) 1,000 MCG TABLET PO SCH (08:28)
[2019-05-20] MEDS: Folic Acid 1 MG TABLET PO SCH (08:28)
[2019-05-20] MEDS: Ascorbic Acid 500 MG TABLET PO SCH ×2 (08:28→17:34)
[2019-05-20] MEDS: PARoxetine 20 MG TABLET PO SCH (08:28)
[2019-05-20] MEDS: Insulin LISPRO 300 UNITS/3 ML VIAL SQ SCH ×4 (08:29→21:23)
[2019-05-20] MEDS ORDERED: Multivit/Ca/Min/Fe/FA 1 TAB TABLET PO SCH (09:00)
[2019-05-20] MEDS: traZODone 50 MG TABLET PO SCH (21:23)
[2019-05-21 03:03] LABS: Hematocrit 24.4 % (35.3-44.9); Hemoglobin 8.3 g/dL (11.5-15.4); Mean Corpuscular Hemoglobin 33.3 pg (28.0-33.3); Platelet Count 194 K/mcL (140-400); Red Blood Count 2.49 M/mcL (3.82-4.97); Red Cell Distribution Width 12.7 % (11.5-14.5)
[2019-05-21 03:22] LABS: BUN/Creatinine Ratio 16 (6-26); Blood Urea Nitrogen 18 mg/dL (8-23); Calcium 8.6 mg/dL (8.6-10.3); Carbon Dioxide 27 mEq/L (23-29); Chloride 102 mEq/L (98-107); Glucose 211 mg/dL (70-105); Osmolality,Calculated 292 (280-300); Sodium 137 mEq/L (136-145); eGFR For African Americans > 60 (> 60); eGFR For Non-African Americans 50 (> 60)
[2019-05-21] MEDS: levoFLOXacin 750 MG/150 ML 750 MG/150 ML BAG IVPB SCH (09:28)
[2019-05-21] MEDS: Ascorbic Acid 500 MG TABLET PO SCH ×2 (09:29→18:31)
[2019-05-21] MEDS: Multivit/Ca/Min/Fe/FA 1 TAB TABLET PO SCH (09:29)
[2019-05-21] MEDS: Cyanocobalamin (B-12) 1,000 MCG TABLET PO SCH (09:29)
[2019-05-21] MEDS: Folic Acid 1 MG TABLET PO SCH (09:29)
[2019-05-21] MEDS: PARoxetine 20 MG TABLET PO SCH (09:29)
[2019-05-21] MEDS: Aspirin Enteric Coated 81 MG Tablet PO SCH (09:29)
[2019-05-21] MEDS: Insulin LISPRO 300 UNITS/3 ML VIAL SQ SCH ×4 (12:08→20:55)
[2019-05-21] MEDS: traZODone 50 MG TABLET PO SCH (20:54)
[2019-05-22 04:33] LABS: Hematocrit 23.9 % (35.3-44.9); Hemoglobin 7.8 g/dL (11.5-15.4)
[2019-05-22 04:53] LABS: BUN/Creatinine Ratio 15 (6-26); Blood Urea Nitrogen 14 mg/dL (8-23); Calcium 8.6 mg/dL (8.6-10.3); Carbon Dioxide 27 mEq/L (23-29); Chloride 102 mEq/L (98-107); Glucose 174 mg/dL (70-105); Osmolality,Calculated 287 (280-300); Sodium 136 mEq/L (136-145); eGFR For African Americans > 60 (> 60); eGFR For Non-African Americans > 60 (> 60)
[2019-05-22] MEDS: PARoxetine 20 MG TABLET PO SCH (08:42)
[2019-05-22] MEDS: Aspirin Enteric Coated 81 MG Tablet PO SCH (08:42)
[2019-05-22] MEDS: Multivit/Ca/Min/Fe/FA 1 TAB TABLET PO SCH (08:42)
[2019-05-22] MEDS: Insulin LISPRO 300 UNITS/3 ML VIAL SQ SCH (08:43)
[2019-05-22] MEDS: Folic Acid 1 MG TABLET PO SCH (08:43)
[2019-05-22] MEDS: levoFLOXacin 750 MG/150 ML 750 MG/150 ML BAG IVPB SCH (08:43)
[2019-05-22] MEDS: Ascorbic Acid 500 MG TABLET PO SCH (08:43)
[2019-05-22] MEDS: Cyanocobalamin (B-12) 1,000 MCG TABLET PO SCH (08:43)
[2019-05-22 10:40] VITALS: BP 100/66
[2019-05-26] MEDS ORDERED: *HR* Methotrexate 2.5 MG TABLET PO SCH (09:00)
== END 2019-05-22 15:48 | disposition home health service (06) | DRG 469 ==
LOC: EMEROOARM 19:15 → 3NENU 19:15 → SUATTDRO 05-18 00:13 → 3NENU 05-18 00:18
PROVIDERS: ADMIT Family Medicine; ATTEND Family Medicine